=== PATIENT | female | born 1945 | race Caucasian/White ===

== ENCOUNTER 2016-10-22 05:29 | Day surgery (SDC) | payer OTHER ==
[2016-10-22] MEDS ORDERED: KEFZOL 1 GM/D5W 50 ML ONE (05:36)
[2016-10-22] MEDS ORDERED: LR 1,000 ML ONE (05:36)
[2016-10-22] MEDS ORDERED: PEPCID ONE (05:36)
[2016-10-22] MEDS ORDERED: REGLAN ONE (05:36)
[2016-10-22 06:05] LABS: HEMATOCRIT 39.5 % (37.0-47.0); HEMOGLOBIN 13.9 g/dL (12.0-16.0); MCH 29.7 PG (27-31); MCHC 35.2 g/dL (33-37); MCV 84.4 FL (81-99); MPV 10.9 FL (7.4-10.4); RBC 4.68 XMIL (4.2-5.4)
[2016-10-22 06:29] LABS: POTASSIUM 3.5 mmol/L (3.5-5.1)
[2016-10-22] MEDS ORDERED: FENTANYL ONE (06:32)
[2016-10-22] MEDS ORDERED: DIPRIVAN 1% ONE (06:33)
--- NOTE | 2016-10-22 08:13 | OPERATIVE NOTE ---
PROCEDURE DATE: 10/22/2016 SURGEON: Ruy Goodson MD PREOPERATIVE DIAGNOSIS: Right ureteral stricture probably due to previous radiation therapy. POSTOPERATIVE DIAGNOSIS: Right ureteral stricture probably due to previous radiation therapy. PROCEDURE PERFORMED: Cystoscopic exam, exchange right double-J stent. ANESTHESIA: General via laryngeal mask. FINDINGS: Cystoscopic exam: Urethra-greater than 21-Moldovan, without stricture. Bladder-normal ureteral orifices bilaterally with double-J stent in good position on the right. It was mildly stone encrusted. No papillary lesions. No trabeculations. No bladder stones noted. exam normal external female, atrophic mucosa. No palpable adnexal or bladder masses. INDICATION FOR PROCEDURE: This 71-year-old female with history of breast cancer and colon cancer has a colostomy and history of bladder stones and right ureteral stricture. She is 3 months status post cystolitholapaxy and placement of a double-J stent. She presents for exchange. DESCRIPTION OF PROCEDURE: After informed consent was obtained from the patient, and her receiving IV antibiotics, she was taken to the main OR cystoscopy room and placed in the supine position. General anesthesia via laryngeal mask was achieved. She was then placed in lithotomy position and prepped and draped in usual sterile fashion for cystoscopic exam. A 21-Moldovan sheath cystoscope was passed through the patient's urethra and into the bladder with findings as noted above. A 0.035 zip wire was passed through the cystoscope, engaged right ureteral orifice and after some manipulation, was able to be pushed up into the right kidney beside the double-J stent. The old double-J stent was removed and a new 6-Moldovan, 22 cm double-J stent was passed over the zip wire and up into the kidney. The renal end was verified by fluoroscopic exam, bladder end directly visualized. Stent removal string was removed. The old double-J stent again was mildly stone encrusted and will need to be changed again in 3 months. She will be encouraged to increase her water intake. A exam was performed. ESTIMATED BLOOD LOSS: Zero. DISPOSITION: She was taken to the recovery room in good condition.
[2016-10-22 08:31] VITALS: BP 123/72
[2016-10-22] MEDS ORDERED: ZOFRAN ONE (09:14)
[2016-10-22] MEDS ORDERED: XYLOCAINE-MPF 2% ONE (09:14)
[2016-10-22] MEDS ORDERED: DECADRON ONE (09:14)
--- NOTE | 2016-10-22 10:06 | Diag Imaging Result Document ---
PROCEDURE NAME: FLUROSCOPY CYSTO - 10/22/2016 LIMITED FLUOROSCOPIC IMAGES OF THE LOWER ABDOMEN AND PELVIS: COMPARISON: None available. FINDINGS: Eight spot fluoroscopic images were provided during right ureteral stent exchange by Dr. Ruy Goodson. On the final image, the newly exchanged right ureteral stent is identified in the expected position. Multiple metallic clips project over the lower abdomen and pelvis. IMPRESSION: As above. Please correlate with live fluoroscopic imaging.
== END 2016-10-22 08:47 | disposition home or self-care (01) ==
LOC: PAT 05:29
PROVIDERS: ATTEND Urology
DX: N13.5 Crossing vessel and stricture of ureter without hydronephrosis (principal); Z85.038 Personal history of other malignant neoplasm of large intestine; Z85.3 Personal history of malignant neoplasm of breast; Z85.42 Personal history of malignant neoplasm of other parts of uterus
CPT/HCPCS: 76000; 80048; 85027; J0690; J1100; J2405; J3010; J7120